=== PATIENT | female | born 1945 | race Caucasian/White ===

== ENCOUNTER 2016-09-09 14:34 | Emergency (ER) | payer MEDICARE, BC ==
[2016-09-09] MEDS ORDERED: Ondansetron ODT 4 MG TAB ONE (14:51)
[2016-09-09] MEDS ORDERED: HYDROcodone/Acetaminophen 10/325 mg Tablet ONE (14:52)
--- NOTE | 2016-09-09 15:41 | CT ---
NONCONTRAST CT OF THE FACE: Indication: Tripped and fell, hitting face, now with left facial pain and swelling. FINDINGS: There is a comminuted, mildly displaced fracture involving the anterior left maxillary sinus wall. T here is also fracture extension into the left inferior orbital floor without evidence of displacemen t or CT evidence of entrapment. There is hemorrhage present within the left maxillary sinus. The lef t lateral or posterior wall of the maxillary sinus appears intact. The zygomatic arches are intact. The orbital rim remains intact. The nasal bones are intact. The man dible appears intact. The osseous nasal septum is intact. Mastoid air cells are clear. Visualized in tracranial contents are within normal limits. There is soft tissue swelling surrounding the left orb it and overlying the left zygoma. The left red cliff lens has been replaced. The globes are intact. Th ere is anterior translation of C2 on C3, and C3 on C4, likely degenerative in nature. IMPRESSION: 1. Left anterior maxillary sinus wall fracture with fracture extension into the left inferior orbita l floor without overt CT evidence of entrapment. 2. Hemorrhage in the left maxillary sinus. 3. Multiple level spondylosis of the cervical spine. POS: [facility]
== END 2016-09-09 16:00 | disposition home or self-care (01) ==
LOC: NAV ERS 14:34
DX: S02.32XA Fracture of orbital floor, left side, initial encounter for closed fracture (principal); S02.40DA Maxillary fracture, left side, initial encounter for closed fracture; E11.9 Type 2 diabetes mellitus without complications; E03.9 Hypothyroidism, unspecified; K21.9 Gastro-esophageal reflux disease without esophagitis; E78.5 Hyperlipidemia, unspecified; E78.00 Pure hypercholesterolemia, unspecified; I10 Essential (primary) hypertension; Z79.84 Long term (current) use of oral hypoglycemic drugs; Z79.899 Other long term (current) drug therapy; W19.XXXA Unspecified fall, initial encounter
CPT/HCPCS: 70486; Q0162